=== PATIENT | female | born 1980 | race Caucasian/White ===

== ENCOUNTER 2024-12-22 09:15 | Emergency (ER) | payer OTHER, SELFPAY ==
--- NOTE | ~2024-12-22 | US_ITS ---
EXAMINATION: US pelvic complete w TV, 12/22/2024 11:30 FISCAL OFFICER HISTORY: r/o ovarian torsion Comparison: None Technique: Beaver-scale and color Doppler images were obtained. Findings: Uterus: Uterus anteverted 7.5 x 3.5 x 5.2 cm. . Endometrium 6 mm. Right Ovary:Right ovary 2.8 x 1.9 x 1.6 cm, no adnexal mass, normal flow. Left Ovary: Left ovary 2.5 x 1.6 x 1.9 cm, no adnexal mass, normal flow. Free Fluid: None Impression: No acute abnormality. Reviewed, dictated and finalized at location P. AL OFFICER Impression: No acute abnormality.
--- NOTE | ~2024-12-22 | CT_ITS ---
EXAM/PROCEDURE: CT abdomen pelvis w con HISTORY: llq pain COMPARISON: None available. TECHNIQUE: IV contrast enhanced CT of the abdomen and pelvis performed. FINDINGS: Moderate left-sided hydroureteronephrosis with a 3 mm stone in the distal left ureter just above the UVJ as seen on image 116 series 3. Mildly delayed nephrogram, and small amount of left-sided perinephric fluid present. No urinary bladder stones or right-sided ureteral stones. No right-sided hydroureteronephrosis. 7 mm cyst right kidney. 3 mm nonobstructing lower pole right kidney stone. 5 mm cyst in the upper and lower poles of the right kidney. The bowel gas pattern is nonobstructive with no free air or free fluid or pneumatosis. Anteflex uterus and adnexal regions unremarkable. Vascular structures patent. No AAA or grossly inflamed appendix. Moderate amount of stool extends to the cecum. Mild diverticular disease with no gross acute diverticulitis. Gallbladder removed. 1.5 cm hypoattenuating area in the anterior liver adjacent to the falciform ligament probably represents normal variant enhancement. Minimal atelectatic appearing changes in the lung bases which are otherwise clear. Heart size normal. Mild degenerative changes in the bones which otherwise appear intact. No bulky lymphadenopathy or masses seen. IMPRESSION: Moderately severe left-sided hydronephrosis with 3 mm stone at or just proximal to the left UVJ. Mildly delayed nephrogram and small amount of left-sided perinephric fluid noted. Reviewed, dictated and finalized at location A. [facility] TILE IMPRESSION: Moderately severe left-sided hydronephrosis with 3 mm stone at or j ust proximal to the left UVJ. Mildly delayed nephrogram and small amount of lef t-sided perinephric fluid noted.
[2024-12-22 09:22] VITALS: BP 157/94; PULSE 87; RESP 22; TEMP 36.6; O2SAT 99
--- NOTE | 2024-12-22 09:35 | ED_ITS ---
HPI - Abdominal Pain General Chief Complaint: Abdominal Pain Stated Complaint: LLQ pain Time Seen by Provider: 12/22/24 09:20 History of Present Illness HPI narrative: Pt presents with LLQ abdominal pain since 0. Pt says pain is crampy and has had nausea and chills but no fever. Pt Noted blood in stool bright red. Pt not vomiting. LMP 6 months ago. Pt has Hx of DM and elevated cholesterol. Related Data Allergies Allergy/AdvReac Type Severity Reaction Status Date / Time Penicillins Allergy Hives Verified 12/22/24 09:17 codeine AdvReac Nausea and Verified 12/22/24 09:17 Vomiting Review of Systems 2 Review of Systems: All systems reviewed & are unremarkable except as noted in HPI and below Exam 2 Const: General: healthy appearing, no acute distress and ill appearing N utritional Appearance: well nourished Orientation/consciousness: patient oriented x3 Limitations: no limitations Neck: Neck: normal visual inspection Resp: Effort & Inspection: normal respiratory effort Auscultation: clear to auscultation bilaterally Cardio: Rate: regular rate Rhythm: regular rhythm GI: GI Palp: Yes Soft to palpation and Yes Tenderness to palpation present (GI) Auscultation: normal bowel sounds Course Vital Signs Vital signs: Vital Signs Temperature 97.8 F 12/22/24 09:22 Pulse Rate 87 12/22/24 09:22 Respiratory Rate 22 H 12/22/24 09:22 Blood Pressure 157/94 H 12/22/24 09:22 Pulse Oximetry 99 12/22/24 09:22 Oxygen Delivery Room Air 12/22/24 09:22 Temperature 97.8 F 12/22/24 09:22 Pulse Rate 85 12/22/24 14:12 Respiratory Rate 20 12/22/24 14:12 Blood Pressure 132/86 12/22/24 14:12 Pulse Oximetry 98 12/22/24 14:12 Oxygen Delivery Room Air 12/22/24 09:22 MDM - Abdominal Pain MDM Narrative Medical decision making narrative: Pt presents with LLQ pain, pain in left pelvic area so concern for ovarian etiology. Will get sono, ua uhcg and labs. sono unremarkable Differential Diagnosis Differential diagnosis: Likely abdominal pain, calculus of kidney, diverticulitis, small bowel obstruction and other (ovarian cyst/torsion uti pyelo) Lab Data Attestation: I reviewed the patient's lab results. 12/22/24 10:36 12/22/24 10:36 Labs: Lab Results 12/22/24 12/22/24 12/22/24 Range/Units 09:38 10:36 11:00 WBC 12.1 H (4.5-10.0) K/mm3 RBC 4.55 (4.2-5.4) M/mm3 Hgb 13.8 (12.0-15.0) g/dL Hct 40.8 (37.0-47.0) % MCV 89.7 (80-100) fl MCH 30.3 (26-34) pg MCHC 33.8 (32-36) g/dl RDW 12.8 (11.5-14.5) % Plt Count 263 (150-375) k/mm3 MPV 10.2 (7.4-10.4) fl Immature Gran % (Auto) 0.6 H (0-0.5) % Neut % (Auto) 85.8 H (45.5-73.1) % Lymph % (Auto) 7.8 L (18.3-44.2) % [place] % (Auto) 5.0 (2.6-8.5) % Eos % (Auto) 0.5 (0-4.4) % Baso % (Auto) 0.3 (0.2-1.2) % Lymph # (Auto) 0.95 (0.9-3.2) K/mm3 [place]ton # (Auto) 0.6 (0.1-0.6) K/mm3 Eos # (Auto) 0.1 (0-0.3) K/mm3 Baso # (Auto) 0.0 (0.0-0.1) K/mm3 Abs Immat Gran (auto) 0.07 H (0.00-0.031) K/mm3 Absolute Neuts (auto) 10.4 H (1.3-6.7) K/mm3 Absolute Nucleated RBC 0.000 (0.0-0.012) K/mm3 Nucleated RBC % 0.0 (0.0-0.2) % PT 12.5 (11.1-14.7) Seconds INR 0.9 APTT 26.5 (22.3-36.8) Seconds Sodium 139 (137-145) mmol/L Potassium 4.3 (3.4-5.0) mmol/L Chloride 103 (98-107) mmol/L Carbon Dioxide 28 (22-30) mmol/L Anion Gap 8 (4-12) mmol/L BUN 22 H (7-17) mg/dL Creatinine 0.79 (0.7-1.0) mg/dL Estim Creat Clear Calc Not Reportable Estimated GFR > 60 (59 - ) Glucose 126 H (65-110) mg/dL Lactic Acid 1.5 (0.7-2.0) mmol/L Calcium 9.6 (8.4-10.2) mg/dL Total Bilirubin 0.5 (0.2-1.3) mg/dL AST 34 (14-36) U/L ALT 45 H (6-35) U/L Alkaline Phosphatase 56 (38-126) U/L Total Protein 7.9 (6.3-8.2) g/dL Albumin 4.9 (3.5-5.1) g/dL Urine Color Yellow (Yellow) Urine Appearance Turbid H (Clear) Urine pH 8.5 (5.0-9.0) Ur Specific [place] 1.019 (1.001-1.035) Urine Protein Negative (Negative) mg/dL Urine Glucose (UA) Negative (Negative) mg/dL Urine Ketones Negative (Negative) mg/dL Ur Blood (Man) 2+ H (Negative) Urine Nitrate Negative (Negative) Urine Bilirubin Negative (Negative) Urine Urobilinogen 0.2 (<2.0) mg/dL Leukocyte Esterase Rfl Negative (Negative) AGNES/UL Urine RBC 51-100 H (0-2) /hpf Urine WBC 0-5 (0-3) /hpf Ur Squamous Epith Cells Few (Few) /hpf Urine Bacteria None seen /hpf Urine Casts 0-2 POC Urine HCG, Qual Negative (Negative) Urine Test Negative Imaging Data Radiologist's impression: ITS Impressions Pelvic/Transvag US 12/22/24 12:47 Impression: No acute abnormality. Abdomen/Pelvis CT 12/22/24 13:19 IMPRESSION: Moderately severe left-sided hydronephrosis with 3 mm stone at or just proximal to the left UVJ. Mildly delayed nephrogram and small amount of left-sided perinephric fluid noted. Discharge Plan Discharge Clinical Impression: Ureterolithiasis Patient Disposition: Home Condition: Improved Instructions: Antibiotic Form, Kidney Stones (ED) Patient Language: Tamaz[place] Prescriptions: New tamsulosin [Flomax] 0.4 mg capsule 0.4 mg PO DAILY Qty: 10 0RF hydrocodone-acetaminophen 5-325 mg tablet 1 tablet PO Q6H PRN (Reason: pain) Qty: 14 0RF ondansetron 4 mg tablet,disintegrating 4 mg PO Q6H PRN (Reason: nausea and vomiting) Qty: 14 0RF Follow-up/Referrals: PHYSICIAN NOT ON STAFF,NONSTAFF [Non-Staff] Timothy Elliott PA [Physician [facility], Urology] - 2 Weeks Referral Note: Left 3mm UVJ stone on MET
[2024-12-22 09:40] LABS: BEDSIDEPREGUCG Negative (Negative)
[2024-12-22 09:46] LABS: Add Urine Microscopic? YES; Appearance Urine Turbid (Clear); Glucose Urine UA Negative (Negative); Leukocyte Esterase Ur Negative LEU/UL (Negative); Nitrate Urine Negative (Negative); Non Pathogenic Casts 0-2; Specific Grav Ur 1.019 (1.001-1.035)
[2024-12-22] MEDS: ONDANSETRON INJ 4 MG/2 ML VIAL IV PUSH ×2 (10:32→13:33)
[2024-12-22] MEDS: HYDROmorphone HCL INJ (*CRX) 1 MG/ML SYR 0.5 MG IV PUSH ×2 (10:33→13:05)
[2024-12-22] MEDS: SODIUM CHLORIDE 0.9% IV 1,000 ML 999 ML IV CONT (10:35)
[2024-12-22] MEDS: KETOROLAC 30 MG/ML VIAL (*BKC) IV PUSH (10:35)
--- OUTSIDE RECORDS SUMMARY | 2024-12-22 10:37 | XMS_ITS | Clinical Summary ---
Author Organization [facility] Piki Address [address] [place] [address] Care Team Providers Care Masonry Contractor Administrator Name Role Phone Bhavani Graff MD Primary Care Provider [phone] Mayra August MD Unavailable [phone] Source Comments [facility],non-owned Affiliates and Associated Physician Practices is amultiple site organization consisting of ambulatory clinics and hospital sitesin [place], [place], [place] and [place]. This disclosure is being madepursuant to the Care Everywhere program and may not contain all information available regarding this patient. Last updated 17.[facility] Allergies Active Allergy Reactions Criticality Noted Date Comments Atorvastatin Itching 10/12/2021 tingling [place] Fruit Itching 07/10/2018 Codeine Rash,GI Discomfort High 07/26/2010 vomiting Hydrocodone-Acetaminophen Nausea and/or Vomiting 09/25/2013 Oxycodone Nausea and/or Vomiting 09/25/2013 Penicillins Urticaria,Rash High 07/26/2010 Medications * Be aware that medications may not be up to date on this document. Alwaysverify current medications with the patient. clobetasol (TEMOVATE) 0.05 % ointment 3 04/11/19 16 Active Blood Glucose Monitoring Suppl ([employer] Verio) w/Device KITIndications: Diabetes Mellitus Use 1 Units as directed Reasons: Diabetes 1 kit 08/23/20 22 Active blood glucose (OneTouch Verio) test strip Use 1 (one) strip 2 times daily 200 strip 3 10/13/19 22 Active Lancets (ONETOUCH DELICA PLUS 33G EXTRA FINE LANCET)Indicati ons:Diabetes Mellitus Use 1 Units 2 times daily Reasons: Diabetes 200 Each 1 01/13/20 22 Active fluocinonide (Lidex) 0.05 % solution APPLY TOPICALLY TO THE AFFECTED AREA TWICE DAILY NEEDED FOR RASH 09/21/19 22 Active LORazepam (Ativan) 0.5 MG tabletIndicatio ns:Situational anxiety Take 1 (one) tablet by mouth every 12 hours as needed for Anxiety 20 tablet 06/05/19 23 Active traZODone (Desyrel) 50 MG tabletIndicatio ns:Insomnia, unspecified type Take 1 (one) tablet to 2 (two) tablets by mouth nightly as needed for Insomnia 90 tablet 10/31/19 23 Active metFORMIN ER 24hr (Glucophage XR) 500 MG tablet TAKE 2 TABLETS DAILY WITH DINNER (REPLACES THE 750 MG TABLET) 180 tablet 1 09/16/19 25 Active ondansetron (Zofran) 4 MG tablet Take 1 (one) tablet by mouth every 6 hours as needed for Nausea/Vomiting 40 tablet 10/21/19 25 Active tirzepatide (Mounjaro) 10 MG/0.5ML injectionIndica tions:Type 2 Diabetes Mellitus Inject 10 (ten) mg subcutaneously every 7 days (once a week) Replacing the 7.5 mg dosing Reasons: Type 2 Diabetes 2 mL 5 10/21/19 25 Active rosuvastatin (Crestor) 10 MG tablet TAKE 1 TABLET DAILY 90 tablet 1 11/21/19 25 Active Active Problems Problem Noted Date Diagnosed Date Hypercholesterolemia 10/12/2021 Type 2 diabetes mellitus wit h hyperglycemia, without long-term current use of insulin 09/24/2021 Moderate episode of recurrent major depressive d isorder 01/11/2017 Class 1 obesity due to exces s calories with serious comorbidity and body mass index (BMI) of 33.0 to 33.9 in adult 01/11/2017 Psoriasis 10/20/2014 Hemorrhoids 11/09/2013 Resolved Problems Problem Noted Date Diagnosed Date Resolved Date Obesity (BMI 30.0-34.9) 10/12/2021 09/0 02/2021 Prediabetes 01/11/2017 10/12/2021 Encounters Date Type Department Care Team Description 11/20/2024 Refill [facility] Endocrinology [address] [place] [address], [address] [phone] Jeny Wade APRN-MUD TEMPERER Refill Request 10/20/2024 11:20 AM CDT Office Visit [facility] Endocrinology [address] [place] [address], [address] [phone] Elaine Bell MD Type 2 diabetes mellitus with hyperglycemia, without long-term current use of insulin (HCC) (Primary Dx); Vitamin D deficiency; Hypercholesterolemia; Hypercalcemia 10/20/2024 Travel from Last 3 Months Immunizations Immunization Administration Dates Next Due FLU VACCINE TRI IIV3 SPLIT I M (FLUVIRIN) 11/20/2013 INFLUENZA VACCINE 01/01/2017, 7,12/03/2014,2012 INFLUENZA VACCINE, CELL CULT URE, QUADR. (FLUCELVAX QUADRIVALENT; 6MO+) (CCIIV4) 11/13/2019,11/17/2018 INFLUENZA VACCINE, TRIV. (FL UZONE; FLULAVAL; FLUARIX; AFLURIA TRIVALENT; 6MO+), 0.5 ML (IIV3) 01/01/2017,03/19/2016,12/03/2014 TDAP (7yrs+) 02/11/2009 Family History Medical History Relation Name Comments Cancer Father Hypertension Father Diabetes Maternal Grandfather Eclampsia Mother Twins Mother Diabetes - Type 2 Paternal Uncle Diabetes Sister Relation Name Status Comments Father Maternal Grandfather Mother Paternal Uncle Alive Sister Social History Tobacco Use Types Packs/Day Years Used Date Smoking Tobacco: Never Smokeless Tobacco: Never Tobacco Cessation:Counseling Given: Not Answered Alcohol Use Standard Drinks/Week Comments Not Currently 0 (1 standard drink = 0.6 oz pur e alcohol) very rarely AUDIT-C Answer Date Recorded Q1: How often do you have a drink containing alc ohol? Monthly or less 08/28/2019 Q2: How many drinks containi ng alcohol do you have on a typical day when you are drinking? 1 or 2 08/28/2019 Q3: How often do you have si x or more drinks on one occasion? 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 on file Hair and makeup Not on file Not on file Not on file Last Filed Vital Signs Vital Sign Reading Time Taken Comments Blood Pressure 126/80 10/20/2024 11:07 AM CDT Pulse 68 10/20/2024 11:07 AM CDT Temperature 37.2 C (99 F) 09/11/2021 11:04 AM CDT Respiratory Rate 18 12/17/2017 2:39 PM CUSTOMER SERVICES MANAGER Oxygen Saturation 98% 10/20/2024 11:07 AM CDT Inhaled Oxygen Concentration - - Weight 72.1 kg (159 lb) 10/20/2024 11:07 AM CDT Height 157.5 cm (5' 2) 10/20/2024 11:07 AM CDT Body Mass Index 29.08 10/20/2024 11:07 AM CDT Plan of Treatment Upcoming Encounters Date Type Department Care Team (Late st Contact Info) Description 04/26/2025 11:20 AM CDT Office Visit [facility] - Endocrinology [id number] [place] [address], [address] [place] [phone] Elaine Bell [place] [id number] [place] [address] Health Maintenance Due Date Last Done Comments COLOGUARD (AGES 45-75) - COLON CA SCREENING 1978 COLON MONITORING 1978 COLONOSCOPY - COLON CA SCREENING 1978 CT COLONOGRAPHY - COLON CA SCREENING 1978 Colorectal Cancer Screening 1978 FIT - COLON CA SCREENING 1978 FLEX SIG - COLON CA SCREENING 1978 MAMMOGRAM 1978 HIV SCREENING 1993 HEPATITIS B VACCINE (1 of 3 - 19+ 3-dose series) 1997 PNEUMOCOCCAL VACCINE (1 of 2 - PCV) 1997 DTAP/TDAP/TD VACCINES (2 - Td or Tdap) 02/11/2019 02/11/2009 PAP SMEAR 07/10/2021 07/10/2018, 07/26/2010 DIABETES RETINOPATHY SCREENING 09/24/2021 DIABETES-FOOT EXAM WITH MONOFILAMENT 02/15/2023 02/15/2022 DEPRESSION SCREENING 02/12/2024 COVID-19 VACCINE ( season) 2024 INFLUENZA VACCINE (#1) 2024 , 11/17/2018, 01/01/2017, Additional history exists DIABETES - URINE PROTEIN SCREENING 04/09/2025 04/09/2024, 01/31/2023, 09/12/2021 DIABETES-HGB A1C 04/19/2025 10/20/2024, 04/2024, 10/09/2023, Additional history exists DIABETES-SERUM CREATININE 10/19/20252024, 04/09/2024, 10/04/2023, Additional history exists ZOSTER VACCINE (1 of 2) 01/21/2028 HEPATITIS C SCREENING Completed 09/12/2021 HIB VACCINE Aged Out No longer eligi ble based on patient's age to complete this topic HPV VACCINE Aged Out No longer eligi ble based on patient's age to complete this topic MENINGOCOCCAL (Group B) VACCINE SHARED DECISION-MAKING Aged Out No longer eligible based on patient's age to complete this topic MENINGOCOCCAL GROUPS A/C/Y/W VACCINE Aged Out No longer eligible based on patient's age to complete this topic Procedures Procedure Name Priority Date/Time Associated Diagnosis Comments HEMOGLOBIN A1C - POINT OF CARE (AMB) Routine 10/20/2024 Type 2 diabetes mellitus with hyperglycemia, without long-term current use of insulin (HCC) GLUCOSE - POINT OF CARE (AMB) STL Routine 10/20/2024 Type 2 diabetes mellitus with hyperglycemia, without long-term current use of insulin (HCC) REF LAB-SPECIMEN STATUS REPORT Routine 10/19/2024 7:54 AM CDT FRUCTOSAMINE Routine 10/19/2024 7:54 AM CDT LIPID PROFILE Routine 10/19/2024 7:54 AM CDT COMPREHENSIVE METABOLIC PANEL Routine 10/19/2024 7:54 AM CDT PTH INTACT Routine 10/19/2024 7:54 AM CDT Type 2 diabetes mellitus with hyperglycemia, without long-term current use of insulin (HCC) VITAMIN D 25-HYDROXY Routine 10/19/2024 7:54 AM CDT Type 2 diabetes mellitus with hyperglycemia, without long-term current use of insulin (HCC) Vitamin D deficiency MICROALB/CREAT RATIO URINE RANDOM PANEL Routine 04/09/2024 12:45 PM CUSTOMER SERVICES MANAGER Type 2 diabetes mellitus with hyperglycemia, without long-term current use of insulin Hypercholesterolemia Vitamin D deficiency HEPATITIS C ANTIBODY Routine 09/12/2021 7:52 AM CDT Elevated LFTs PAP LB HPV HR DNA Routine 07/10/2018 2:4 5 PM CDT Well woman exam Excessive bleeding in premenopausal period from Last 3 Months or Most Recently Relevant to Health Maintenance Results * GLUCOSE - POINT OF CARE (AMB) STL (10/20/2024) Glucose 96 60 - 100 mg/dL Lot # [id number] Expiration Date 07/27/2025 QC Verified Yes Yes Blood BLOOD SPECIMEN / Unknown 10/20/2024 Elaine Bell MD LAB - POINT OF CARE LEANNA SALDAÑA Final Result * HEMOGLOBIN A1C - POINT OF CARE (HgbA1C) (10/20/2024) Hemoglobin A1c POCT 5.1 % Expiration Date 03/23/2026 Lot # [id number] QC Verified Yes Yes Blood BLOOD SPECIMEN / Unknown 10/20/2024 Elaine Bell MD LAB - POINT OF CARE LEANNA SALDAÑA Final Result * REF LAB-SPECIMEN STATUS REPORT (10/19/2024 7:54 AM CDT) Specimen Status Report Comment [facility] ACCOUNT BILL Comment: Written Authorization Written Authorization No Written Authorization Received. 10/19/2024 7:54 AM CDT 10/19/2024 Narrative [facility] ACCOUNT BILL - 11/11/2024 12:07 PM CDT Performed at: [address] [place] [id number] Industrial Maintenance Technician: Jonh Preciado PhD, Phone: [phone] Elaine Bell MD LAB - CHEMISTRY ORDERABL ES Final Result Performing Organization Address [facility] de Phone Number [facility] ACCOUNT BILL [address] [place] [address] * PTH INTACT (10/19/2024 7:54 AM CDT) PTH Intact 34 15 - 65 pg/mL [facility] INSURANCE BILL Blood BLOOD SPECIMEN / Unknown 10/19/2024 7:54 AM CDT 10/19/2024 Narrative [facility] INSURANCE BILL - 10/20/2024 12:07 PM CDT Performed at: [address] [place] [address] [id number] Industrial Maintenance Technician: Jonh Preciado PhD, Phone: [phone] Elaine Bell MD LAB - CHEMISTRY ORDERABL ES Final Result Performing Organization Address [facility] de Phone Number [facility] INSURANCE BILL [address] [place] [address] * FRUCTOSAMINE (10/19/2024 7:54 AM CDT) Fructosamine 201 0 - 285 umol/L [facility] INSURANCE BILL Comment: Published reference interval for apparently healthy subjects between age 20 and 60 is 205 - 285 umol/L and in a poorly controlled diabetic population is 228 - 563 umol/L with a mean of 396 umol/L. 10/19/2024 7:54 AM CDT 10/19/2024 Narrative [facility] INSURANCE BILL - 10/21/2024 6:06 AM CDT Performed at: - [address] [id number] Industrial Maintenance Technician: Jonh Preciado PhD, Phone: [phone] Elaine Bell MD LAB - CHEMISTRY ORDERABL ES Final Result Performing Organization Address [facility] de Phone Number [facility] INSURANCE BILL [address] [place] [address] * VITAMIN D 25-HYDROXY (10/19/2024 7:54 AM CDT) [facility] Vitamin D, 25 Hydroxy 34.6 30.0 - 100.0 ng/mL [facility] INSURANCE BILL Comment: Vitamin D deficiency has been defined by the [place] of [employer] and an Endocrine Society practice guideline as a level of serum 25-OH vitamin D less than 20 ng/mL (1,2). The Endocrine Society went on to further define vitamin D insufficiency as a level between 21 and 29 ng/mL (2). 1. IOM ([place] of [employer]). 2010. Dietary reference intakes for calcium and D. [place]: The National Academies Press. 2. Phyllis MF, Tyler LARSON, Jaden LEWIS, et al. Evaluation, treatment, and prevention of vitamin D deficiency: an Endocrine Society clinical practice guideline. JCEM. 2010; 96(7):1911-30. Blood BLOOD SPECIMEN / Unknown 10/19/2024 7:54 AM CDT 10/19/2024 Narrative [facility] INSURANCE BILL - 10/20/2024 8:07 AM CDT Performed at: [address] [id number] Industrial Maintenance Technician: Jonh Preciado PhD, Phone: [phone] Elaine Bell MD LAB - CHEMISTRY ORDERABL ES Final Result Performing Organization Address [facility]/ZIP Co de Phone Number [facility] INSURANCE BILL [address] [place] [address] * (ABNORMAL) COMPREHENSIVE METABOLIC PANEL (10/19/2024 7:54 AM CDT) Glucose 83 70 - 99 mg/dL [facility] INSURANCE BILL BUN 21 6 - 24 mg/dL [facility] INSURANCE BILL Creatinine 0.73 0.57 - 1.00 mg/dL [facility] INSURANCE BILL eGFR by CKD-EPI 103 >59 mL/min/1.7 3 [facility] INSURANCE BILL BUN/Creatinine Ratio 29(H) 9 - 23 [facility] INSURANCE BILL Sodium 140 134 - 144 mmol/L [facility] INSURANCE BILL Potassium 4.4 3.5 - 5.2 mmol/L [facility] INSURANCE BILL Chloride 101 96 - 106 mmol/L [facility] INSURANCE BILL CO2 22 20 - 29 mmol/L [facility] INSURANCE BILL Calcium 9.6 8.7 - 10.2 mg/dL [facility] INSURANCE BILL Protein Total 6.8 6.0 - 8.5 g/dL [facility] INSURANCE BILL Albumin 4.7 3.9 - 4.9 g/dL [facility] INSURANCE BILL Globulin Total 2.1 1.5 - 4.5 g/dL [facility] INSURANCE BILL Bilirubin Total 0.3 0.0 - 1.2 mg/dL [facility] INSURANCE BILL Alkaline Phosphatase 55 44 - 121 IU/L [facility] INSURANCE BILL Comment: Effective October 26, 2024 Alkaline Phosphatase reference interval will be changing to: Age Male Female 0 - 5 days 47 - 127 47 - 127 6 - 10 days 29 - 242 29 - 242 11 - 20 days 109 - 357 109 - 357 21 - 30 days 94 - 494 94 - 494 1 - 2 months 149 - 539 149 - 539 3 - 6 months 131 - 452 131 - 452 7 - 11 months 117 - 401 117 - 401 12 months - 6 years 158 - 369 158 - 369 7 - 12 years 150 - 409 150 - 409 13 years 156 - 435 78 - 227 14 years 114 - 375 64 - 161 15 years 88 - 279 56 - 134 16 years 74 - 207 51 - 121 17 years 63 - 161 47 - 113 18 - 20 years 51 - 125 42 - 106 21 - 50 years 47 - 123 41 - 116 51 - 80 years 49 - 135 51 - 125 >80 years 48 - 129 48 - 129 AST 20 0 - 40 IU/L [facility] INSURANCE BILL ALT 24 0 - 32 IU/L [facility] INSURANCE BILL 10/19/2024 7:54 AM CDT 10/19/2024 Narrative [facility] INSURANCE BILL - 10/21/2024 6:06 AM CDT Performed at: [address] [id number] Industrial Maintenance Technician: Jonh Preciado PhD, Phone: [phone] Elaine Bell MD LAB - CHEMISTRY ORDERABL ES Final Result Performing Organization Address [facility] de Phone Number [facility] INSURANCE BILL [address] [place] [address] * LIPID PROFILE (10/19/2024 7:54 AM CDT) Cholesterol 165 100 - 199 mg/dL [facility] INSURANCE BILL Triglycerides 137 0 - 149 mg/dL [facility] INSURANCE BILL HDL Cholesterol 54 >39 mg/dL [facility] INSURANCE BILL VLDL Calculated 24 5 - 40 mg/dL [facility] INSURANCE BILL LDL Calculated 87 0 - 99 mg/dL [facility] INSURANCE BILL 10/19/2024 7:54 AM CDT 10/19/2024 Narrative [facility] INSURANCE BILL - 10/21/2024 6:06 AM CDT Performed at: [address] [id number] Industrial Maintenance Technician: Jonh Preciado PhD, Phone: [phone] Elaine Bell MD LAB - CHEMISTRY ORDERABL ES Final Result Performing Organization Address [facility] de Phone Number [facility] INSURANCE BILL [address] [place] [address] * MICROALB/CREAT RATIO URINE RANDOM PANEL (04/09/2024 12:45 PM CUSTOMER SERVICES MANAGER) Creatinine Urine 88.5 Not Estab. mg/dL [facility] INSURANCE BILL Microalbumin Urine 12.1 Not Estab. ug/mL [facility] INSURANCE BILL Microalbumin/Crea tinine Ratio 14 0 - 29 mg/g creat [facility] INSURANCE BILL Comment: Normal: 0 - 29 Moderately increased: 30 - 300 Severely increased: >300 Urine URINE SPECIMEN OBTAINED BY CLEAN CATCH PROCEDURE / Unknown 04/09/2024 12:45 PM CUSTOMER SERVICES MANAGER 04/09/2024 Narrative [facility] INSURANCE BILL - 04/10/2024 7:06 AM CUSTOMER SERVICES MANAGER Performed at: - [address] [id number] Industrial Maintenance Technician: Jonh Preciado PhD, Phone: [phone] us Elaine Bell MD LAB - URINE CHEMISTRY OR DERABLES Final Result Performing Organization Address [facility]/ZIP Co de Phone Number [facility] INSURANCE BILL [address] [place] [address] * HEPATITIS C ANTIBODY (09/12/2021 7:52 AM CDT) Hepatitis C Antibody 0.1 0.0 - 0.9 s/co ratio [facility] INSURANCE BILL Comment: Negative: < 0.8 Indeterminate: 0.8 - 0.9 Positive: > 0.9 . HCV antibody alone does not differentiate between previous resolved infection and active infection. The CDC and current clinical guidelines recommend that a positive HCV antibody result be followed up with an HCV RNA test to support the diagnosis of acute HCV infection. [facility] offers Hepatitis C Virus (HCV) RNA, Diagnosis, KADEEM (502551) and Hepatitis C Virus (HCV) Antibody with reflex to Quantitative Real-time PCR (332244). FASTING Blood BLOOD SPECIMEN / Unknown 09/12/2021 7:52 AM CDT 09/12/2021 Narrative Resulting Agency Comment Lab Testing performed at: [address] [id number] us Bhavani Graff MD LAB - CHEMISTRY ORDERABLES Final Result Performing Organization Address [facility] Co de Phone Number [facility] INSURANCE BILL [address] [place] [address] * (ABNORMAL) PAP LB HPV HR DNA (07/10/2018 2:45 PM CDT) Diagnosis [facility] INSURANCE BILL Comment:NEGATIVE FOR INTRAEP ITHELIAL LESION OR MALIGNANCY. Specimen Adequacy [facility] INSURANCE BILL Comment: Satisfactory for evaluation. Endocervical and/or squamous metaplastic cells (endocervical component) are present. Clinician Provided ICD10 [facility] INSURANCE BILL Comment: Z01.419 N92.4 Performed by [facility] INSURANCE BILL Comment:Roz Ferrara chnologist (ASCP) Comment . [facility] INSURANCE BILL Note [facility] INSURANCE BILL Comment: The Pap smear is a screening test designed to aid in the detection of premalignant and malignant conditions of the uterine cervix. It is not a diagnostic procedure and should not be used as the sole means of detecting cervical cancer. Both false-positive and false-negative reports do occur. . Human papillomavirus High Risk Positive( A) Negative [facility] INSURANCE BILL Comment: This high-risk HPV test detects thirteen high-risk types (16/18/31/33/35/39/45/51/52/56/58/59/68) without differentiation. . Pathology/Cytolog y PART OF UTERINE CERVIX / Unknown 07/10/2018 2:45 PM CDT 07/10/2018 Narrative [facility] INSURANCE BILL - 07/14/2018 5:06 PM CDT LMP / Prev Treat...[id number]=[id number] No. of containers..01 ThinPrep Vial Resulting Agency Comment Lab Testing performed at: [address] [id number] Anant Meek MD LAB - PATHOLOGY/CYTOLOGY ORDERA BLES Final Result [facility] INSURANCE BILL [address] [place] [address] from Last 3 Months or Most Recently Relevant to Health Maintenance Insurance [facility] Care Teams Masonry Contractor Administrator Relationship Specialty Start Date End Date Bhavani Graff MD [address] [place] [address] [place] [address] PCP - General 03/29/11 Mayra August MD [address] [place] [address] [place] [address] Obstetrics and Gynecology 09/11/21
--- OUTSIDE RECORDS SUMMARY | 2024-12-22 10:37 | XMS_ITS | Encounter Summary ---
Author Organization [facility] Address [address] [facility] [place] [address] Care Team Providers Care Ferryboat Helper Name Role Phone Bhavani Graff MD Primary Care Provider [phone] Mayra August MD Unavailable [phone] Bhavani Graff MD Unavailable Reason for Visit * Reason Onset Date Comments MEDICATION REFILL 09/13/2021 Encounter Details Date Type Department Care Team (Late st Contact Info) Description 09/13/2021 Refill [facility] - Family Medicine [address] [place] [address] Bhavani Graff MD [address] [place] [address] MEDICATION REFILL Social History Tobacco Use Types Packs/Day Years Used Date Smoking Tobacco: Never Smokeless Tobacco: Never Alcohol Use Standard Drinks/Week Comments Yes 0 (1 standard drink = 0.6 oz [...] on file Legal Sex Female 1:08 PM NEEDLE GRADER Gender Identity Not on file Sexual Orientation Not on file 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 Also is this a low does? It doesn???t seem like it does a whole lot for my anxiety overall --------- PLEASE SEE NOTE BELOW --------- Per MARIE note on 09/11/2021 She now lives in [place] - advised to establish care with PCP closer to her for regular timely care. .) Please review, update med list and sign off as refill is appropriate. Sig left blank for PCP to review and order as appropriate --------- MEDICATION FILLED PER PROTOCOL -Trazodone Last Office Visit with PCP: 09/11/2021 Last Video Visit with PCP: 08/28/2019 Next Appointment with PCP: Visit date not found Follow-up: not indicated Disposition of prescription: routed to PCP for review. --------- CONTROLLED MEDICATION REFILL REQUEST Medication: Requested Prescriptions Pending Prescriptions Disp Refills ??? traZODone (Desyrel) 50 MG tablet 60 tablet 5 Sig: Take 1-2 tab qhs prn Reasons: Trouble Sleeping ??? LORazepam (Ativan) 0.5 MG tablet 20 tablet 0 Sig: Take 1 (one) tablet by mouth every 12 hours as needed FOR ANXIETY Last Office Visit with PCP: 09/11/2021 Last Video Visit with PCP: 08/28/2019 Next Appointment with PCP: Visit date not found Follow-up: not indicated Date of last refill: 07/22/2020 #20 documented in this encounter Plan of Treatment Upcoming Encounters Date Type Department Care Team (Late st Contact Info) Description 04/26/2025 11:20 AM CDT Office Visit [facility] - Endocrinology [address] [facility], [address] [place] [phone] [place] [address] [facility] [address] [place] [address] documented as of this encounter Visit Diagnoses Diagnosis Insomnia, unspecified type Situational anxiety Other anxiety states documented in this encounter Care Teams Ferryboat Helper Relationship Specialty Start Date End Date Bhavani Graff MD [address] [place] [address] PCP - General 03/29/11 Bhavani Graff MD [address] [place] [address] PCP - Attributed-[employer] 10/12/21 3 Mayra August MD [address] [place] [address] Obstetrics and Gynecology 09/11/21 documented as of this encounter
[2024-12-22 10:43] LABS: Hematocrit 40.8 % (37.0-47.0); Hemoglobin 13.8 g/dL (12.0-15.0); Immature Granulocyte Percent A 0.6 % (0-0.5); Lymphocytes Absolute Auto 0.95 K/mm3 (0.9-3.2); Mean Corpuscular HGB Conc 33.8 g/dl (32-36); Mean Corpuscular Hemoglobin 30.3 pg (26-34); Mean Corpuscular Volume 89.7 fl (80-100); Nucleated Red Blood Cells Absolute Auto 0.000 K/mm3 (0.0-0.012); Nucleated Red Blood Cells Perc 0.0 % (0.0-0.2); Platelet Count Result 263 k/mm3 (150-375); Red Blood Count 4.55 M/mm3 (4.2-5.4); White Blood Count 12.1 K/mm3 (4.5-10.0)
[2024-12-22 10:53] LABS: Alanine Aminotransferase 45 U/L (6-35); Albumin Level 4.9 g/dL (3.5-5.1); Alkaline Phosphatase 56 U/L (38-126); Anion Gap 8 mmol/L (4-12); Aspartate Amino Transferase 34 U/L (14-36); Bilirubin,Total 0.5 mg/dL (0.2-1.3); Blood Urea Nitrogen 22 mg/dL (7-17); Calcium 9.6 mg/dL (8.4-10.2); Carbon Dioxide 28 mmol/L (22-30); Chloride 103 mmol/L (98-107); Estimated Glomerular Filt Rate > 60; Glucose 126 mg/dL (65-110); Potassium 4.3 mmol/L (3.4-5.0); Sodium 139 mmol/L (137-145); Total Protein 7.9 g/dL (6.3-8.2)
[2024-12-22 11:05] LABS: INR 0.9; Prothrombin Time 12.5 Seconds (11.1-14.7)
[2024-12-22 11:06] LABS: Partial Thromboplastin Time 26.5 Seconds (22.3-36.8)
[2024-12-22 11:15] LABS: Pregnancy On Board Control Positive
[2024-12-22 14:12] VITALS: BP 132/86; PULSE 85; RESP 20; O2SAT 98
== END 2024-12-22 14:18 | disposition home or self-care (01) ==
PROVIDERS: Emergency Provider Emergency Medicine
DX: N13.2 Hydronephrosis with renal and ureteral calculous obstruction (principal); E11.9 Type 2 diabetes mellitus without complications; E78.00 Pure hypercholesterolemia, unspecified
CPT/HCPCS: 36415; 74177; 76830; 76856; 80053; 81001; 81025; 83605; 85025; 85610; 85730; 96361; 96374; 96375; 96376; 99284; J1171; J1885; J2405; J7030; Q9967